=== PATIENT | male | born 1975 | race African-American/Black ===

== ENCOUNTER 2016-06-17 02:46 | Emergency (ER) | payer MEDICARE, OTHER ==
[~2016-06-17] VITALS: Ht 167.6 cm; Wt 59.0 kg
[~2016-06-17 02:46] MED LIST: ADVIL PO; ARIP15TA3 PO; ASPI-1035 PO; CARV6.2548 PO; METO-296 PO; MIRT15TA6 PO
[2016-06-17] MEDS ORDERED: CYCLOBENZAPRINE 10MG TABLET PO ONE (03:30)
[2016-06-17] MEDS ORDERED: KETOROLAC 30MG/ML VIAL IM ONE (03:30)
[2016-06-17] MEDS ORDERED: ACETAMINOPHEN 325MG TABLET PO ONE (12:15)
[2016-06-17] MEDS ORDERED: HYDROCODONE/ACETAMINOPHEN 5/325MG TABLET PO ONE (20:00)
[2016-06-18] MEDS ORDERED: HYDROCODONE/ACETAMINOPHEN 5/325MG TABLET PO ONE ×2 (04:45→11:15)
[2016-06-18 16:29] VITALS: BP 158/92
== END 2016-06-18 19:46 | disposition home or self-care (01) ==
LOC: ER 02:47
DX: M79.604 Pain in right leg (principal); Z79.82 Long term (current) use of aspirin; Z79.899 Other long term (current) drug therapy; F20.9 Schizophrenia, unspecified; E11.9 Type 2 diabetes mellitus without complications; I10 Essential (primary) hypertension; M79.605 Pain in left leg; G89.29 Other chronic pain
CPT/HCPCS: 96372; 99284; J1885

== ENCOUNTER 2016-06-23 03:22 | Emergency (ER) | payer MEDICARE, OTHER ==
[~2016-06-23] VITALS: Ht 167.6 cm; Wt 45.0 kg
[2016-06-23] MEDS ORDERED: ACETAMINOPHEN WITH CODEINE 300/30MG TABLET PO STA (03:54)
[2016-06-23 04:24] LABS: BASOPHILS % 0.7 % (0.0-2.0); EOSINOPHILS % 3.1 % (0.0-5.0); HEMATOCRIT. 47.1 % (42.0-52.0); HEMOGLOBIN. 15.4 g/dL (14.0-18.0); MEAN CORPUSCULAR HEMOGLOBIN 28.4 pg (28.0-32.0); MEAN CORPUSCULAR HGB CONC 32.6 g/dL (31.0-37.0); MEAN CORPUSCULAR VOLUME 87.1 fL (80.0-94.0); MONOCYTES % 6.5 % (2.0-8.0); NEUTROPHILS % 52.7 % (40.0-76.0); PLATELET 239 x1000/uL (130-400); RED BLOOD CELL COUNT 5.41 mill/uL (4.7-6.1); RED CELL DISTRIBUTION WIDTH 15.3 % (11.6-14.6); WHITE BLOOD COUNT 6.6 x1000/uL (4.5-11.0)
[2016-06-23 04:34] LABS: ALANINE AMINOTRANSFERASE 24 IU/L (13-61); ALBUMIN 4.1 g/dL (3.4-5.0); ANION GAP 11; CALCIUM 9.5 mg/dL (8.5-10.1); CARBON DIOXIDE 28 mEq/L (21-32); CHLORIDE 105 mEq/L (98-107); INDEX HEMOLYSI 1 (1-3); INDEX ICTERIC 1 (1-4); INDEX LIPEMIC 1 (1-3); UREA NITROGEN BLOOD 25 mg/dL (7-21); eGFR > 60 mL/min (>60)
[2016-06-23 04:52] LABS: D-DIMER 0.21 mg/L FEU (<0.50); INR 1.1
[2016-06-23 12:11] VITALS: BP 122/79
== END 2016-06-23 12:12 | disposition left against medical advice (07) ==
LOC: ER 03:23
DX: G82.20 Paraplegia, unspecified (principal); R06.02 Shortness of breath; M79.605 Pain in left leg; M79.604 Pain in right leg; E11.9 Type 2 diabetes mellitus without complications; I10 Essential (primary) hypertension; Z79.1 Long term (current) use of non-steroidal anti-inflammatories (NSAID); Z79.899 Other long term (current) drug therapy; F17.210 Nicotine dependence, cigarettes, uncomplicated
CPT/HCPCS: 36415; 71010; 80053; 85025; 85379; 85610; 93005; 99285

== ENCOUNTER 2016-07-07 13:59 | Emergency (ER) | payer MEDICARE, MEDICAID ==
[~2016-07-07] VITALS: Ht 175.3 cm; Wt 79.0 kg
[2016-07-07] MEDS ORDERED: HYDROCODONE/ACETAMINOPHEN 5/325MG TABLET PO ONE (14:30)
[2016-07-07] MEDS ORDERED: DIAZEPAM 2 MG TABLET PO ONE ×2 (14:45→18:30)
[2016-07-07] MEDS ORDERED: IBUPROFEN 400MG TABLET PO ONE (17:30)
[2016-07-07 22:52] LABS: BASOPHILS % 1.3 % (0.0-2.0); EOSINOPHILS % 2.4 % (0.0-5.0); HEMATOCRIT. 43.3 % (42.0-52.0); HEMOGLOBIN. 14.2 g/dL (14.0-18.0); LYMPHOCYTES % 45.9 % (20.0-50.0); MEAN CORPUSCULAR HEMOGLOBIN 28.4 pg (28.0-32.0); MEAN CORPUSCULAR HGB CONC 32.8 g/dL (31.0-37.0); MEAN CORPUSCULAR VOLUME 86.6 fL (80.0-94.0); MEAN PLATELET VOLUME 7.9 fl (7.4-10.4); MONOCYTES % 6.9 % (2.0-8.0); NEUTROPHILS % 43.5 % (40.0-76.0); PLATELET 268 x1000/uL (130-400); RED CELL DISTRIBUTION WIDTH 15.7 % (11.6-14.6); WHITE BLOOD COUNT 6.5 x1000/uL (4.5-11.0)
[2016-07-07 22:59] LABS: ACETAMINOPHEN < 2 ug/mL (10-30); ALANINE AMINOTRANSFERASE 23 IU/L (13-61); ALBUMIN 3.3 g/dL (3.4-5.0); ANION GAP 10; CARBON DIOXIDE 32 mEq/L (21-32); CHLORIDE 106 mEq/L (98-107); ETHANOL BLOOD < 10 mg/dL; INDEX HEMOLYSI 1 (1-3); INDEX ICTERIC 1 (1-4); INDEX LIPEMIC 1 (1-3); UREA NITROGEN BLOOD 20 mg/dL (7-21); eGFR > 60 mL/min (>60)
[2016-07-08] MEDS ORDERED: HYDROCODONE/ACETAMINOPHEN 5/325MG TABLET PO ONE ×4 (02:15→23:00)
[2016-07-08] MEDS ORDERED: DIAZEPAM 2 MG TABLET PO ONE ×3 (02:15→10:00)
[2016-07-09] MEDS ORDERED: DIAZEPAM 2 MG TABLET PO ONE (01:30)
[2016-07-09 04:06] LABS: CLARITY URINE CLEAR (CLEAR); COLOR URINE YELLOW (YELLOW); GLUCOSE URINE NEGATIVE (NEGATIVE); KETONES URINE NEGATIVE (NEGATIVE); LEUKOCYTE ESTERASE URINE 1+ (NEGATIVE); NITRITE URINE NEGATIVE (NEGATIVE); OCCULT BLOOD URINE NEGATIVE (NEGATIVE); PROTEIN URINE NEGATIVE (NEGATIVE); SPECIFIC GRAVITY URINE 1.017 (1.005-1.030); UROBILINOGEN URINE 0.2 E.U./dL (0.2-1.0)
[2016-07-09 04:22] LABS: SQUAMOUS EPITHELIAL CELL URINE NONE SEEN /lpf (RARE/1+)
[2016-07-09 04:23] LABS: BACTERIA URINE 2+; RBC URINE 0-2 /hpf (0-2)
[2016-07-09] MEDS ORDERED: LISINOPRIL 10MG TABLET PO ONE (09:30)
[2016-07-09 09:39] VITALS: BP 172/122
== END 2016-07-09 11:44 | disposition home or self-care (01) ==
LOC: ER 14:07
DX: M79.605 Pain in left leg (principal); E11.9 Type 2 diabetes mellitus without complications; I10 Essential (primary) hypertension; Z79.82 Long term (current) use of aspirin
CPT/HCPCS: 36415; 80053; 80307; 80329; 81001; 85025; 99284; G0482

== ENCOUNTER 2016-07-17 00:24 | Emergency (ER) | payer MEDICARE, MEDICAID ==
[~2016-07-17] VITALS: Ht 177.8 cm; Wt 59.0 kg
[2016-07-17] MEDS ORDERED: KETOROLAC 60MG/2ML VIAL IM ONE (02:15)
[2016-07-17] MEDS ORDERED: CYCLOBENZAPRINE 10MG TABLET PO ONE (02:15)
[2016-07-17 07:34] VITALS: BP 139/95
== END 2016-07-17 10:03 | disposition home or self-care (01) ==
LOC: ER 00:25
DX: G89.29 Other chronic pain (principal); M79.605 Pain in left leg; M79.604 Pain in right leg; G82.20 Paraplegia, unspecified; I10 Essential (primary) hypertension; E11.9 Type 2 diabetes mellitus without complications; Z79.82 Long term (current) use of aspirin
CPT/HCPCS: 96372; 99283; J1885

== ENCOUNTER 2016-07-19 19:06 | Emergency (ER) | payer MEDICARE, MEDICAID ==
[~2016-07-19] VITALS: Ht 177.8 cm; Wt 80.0 kg
[2016-07-19] MEDS ORDERED: KETOROLAC 60MG/2ML VIAL IM ONE (21:45)
[2016-07-19] MEDS ORDERED: DIAZEPAM 5 MG TABLET PO ONE (21:45)
[2016-07-20] MEDS ORDERED: METHOCARBAMOL 500MG TABLET PO ONE (06:45)
[2016-07-20 09:28] VITALS: BP 152/105
== END 2016-07-20 09:55 | disposition home or self-care (01) ==
LOC: ER 19:14
DX: G89.29 Other chronic pain (principal); M79.605 Pain in left leg; M62.838 Other muscle spasm; F31.9 Bipolar disorder, unspecified; E11.9 Type 2 diabetes mellitus without complications; I10 Essential (primary) hypertension; Z79.899 Other long term (current) drug therapy; Z79.82 Long term (current) use of aspirin
CPT/HCPCS: 73630; 93971; 96372; 99284; J1885